=== PATIENT | female | born 1955 | race Caucasian/White ===

== ENCOUNTER → 2018-06-10 | Outpatient (REF) | payer BC | LOC: M LAB REF 17:17 | PROVIDERS: ATTEND Nurse Practitioner Family | DX: J44.9 Chronic obstructive pulmonary disease, unspecified (principal) ==

== ENCOUNTER 2018-06-28 12:35 | Outpatient (RCR) | payer BC ==
--- NOTE | 2018-06-28 14:07 | NUR ---
Pt referred by Dr. Scott Nuno for functional voice evaluation s/p flexible laryngoscopy w/ no structural defects. Pt presents w/ dysphonia characteristic of strained, hoarse vocal quality with intermittent breathiness and glottal mckinley. Pt also demonstrated decreased breath support and hard glottal onset during evaluation. Recommending voice tx to reduce laryngeal strain, maximize vocal hygiene, maximize breath support, and strengthen vocal folds. Addendum: 06/28/[address] [facility] Amended: Links added.
== END 2018-07-16 ==
LOC: M ST 12:35
PROVIDERS: ATTEND Otolaryngology
DX: R49.0 Dysphonia (principal)

== ENCOUNTER 2023-04-18 12:16 | Observation (INO) | payer MEDICARE ==
[~2023-04-18] VITALS: Ht 157.5 cm; Wt 73.3 kg
[2023-04-18] MEDS ORDERED: LABETALOL 100MG/20ML VIAL IV STA (13:06)
[2023-04-18 13:39] LABS: BASO # 0.1 10^3/uL (0.0-0.2); BASO % 0.8 % (0.0-1.0); EOS # 0.1 10^3/uL (0.0-0.5); EOS % 1.9 % (0.0-3.0); HEMATOCRIT 45.3 % (36.0-47.0); HEMOGLOBIN 15.6 g/dl (12.0-15.5); LYMPH # 2.2 10^3/uL (1.5-5.0); LYMPH % 29.5 % (24.0-44.0); MEAN CORPUSCULAR HEMOGLOBIN 28.8 pg (27.0-33.0); MEAN CORPUSCULAR HGB CONC 34.4 g/dl (32.0-36.5); MEAN CORPUSCULAR VOLUME 83.6 fl (80.0-96.0); MONO # 0.5 10^3/uL (0.0-0.8); MONO % 7.3 % (2.0-8.0); NEUTROPHILS # 4.5 10^3/uL (1.5-8.5); NEUTROPHILS % 60.2 % (36.0-66.0); PLATELET COUNT, AUTOMATED 264 10^3/uL (150-450); RED BLOOD COUNT 5.42 10^6/uL (4.00-5.40); WHITE BLOOD COUNT 7.4 10^3/uL (4.0-10.0)
[2023-04-18 13:54] LABS: ALBUMIN 3.9 G/DL (3.2-5.2); ALKALINE PHOSPHATASE 83 U/L (46-116); ALT/SGPT 24 U/L (7.0-40); AST/SGOT 16 U/L (<34); BILIRUBIN,DIRECT 0.1 MG/DL (<0.4); BILIRUBIN,TOTAL 0.4 MG/DL (0.3-1.2); BLOOD UREA NITROGEN 16 MG/DL (9-23); CALCIUM LEVEL 8.9 MG/DL (8.3-10.6); CARBON DIOXIDE LEVEL 30 MMOL/L (20-31); CHLORIDE LEVEL 108 MMOL/L (98-107); CK-MB VALUE MASS < 1.0 NG/ML (<3.6); CPK CREATINE PHOSPHOKINASE 72 U/L (34-145); CREATININE FOR GFR 0.81 MG/DL (0.55-1.30); GLOMERULAR FILTRATION RATE > 60.0 (>45); GLUCOSE, FASTING 123 MG/DL (74-106); INR 1.04; MB/CK RELATIVE INDEX 1.38 (< OR =4); POTASSIUM SERUM 3.9 MMOL/L (3.5-5.1); PROTHROMBIN TIME 13.3 SECONDS (12.5-14.5); SODIUM LEVEL 145 MMOL/L (136-145); TOTAL PROTEIN 6.8 G/DL (5.7-8.2)
[2023-04-18 13:55] LABS: PARTIAL THROMBOPLASTIN TIME 31.7 SECONDS (24.8-34.2)
[2023-04-18 13:57] LABS: THYROID STIMULATING HORMONE 3.338 uIU/ML (0.55-4.78)
[2023-04-18 13:58] LABS: FREE T4 1.01 NG/DL (0.89-1.76)
[2023-04-18 14:02] LABS: RSV AMPLIFICATION NEGATIVE (NEGATIVE)
[2023-04-18] MEDS ORDERED: MED REC IN PROGRESS XX SCH (14:20)
[2023-04-18] MEDS ORDERED: TREL1AER PO (15:02)
[2023-04-18] MEDS ORDERED: BENZ200C70 PO (15:02)
[2023-04-18] MEDS ORDERED: GUAI600T54 PO (15:02)
[2023-04-18] MEDS ORDERED: BENZ-18 PO (15:02)
[2023-04-18] MEDS ORDERED: ALBU8.5H INH (15:02)
[2023-04-18] MEDS ORDERED: LORA-1042 PO (15:02)
[2023-04-18] MEDS ORDERED: SIMV40TA20 PO (15:02)
[2023-04-18] MEDS ORDERED: OMEP-173 PO (15:02)
[2023-04-18] MEDS ORDERED: GABA-282 PO (15:02)
[2023-04-18] MEDS ORDERED: HOME MED LIST COMPLETE! XX SCH (15:05)
[2023-04-18] MEDS ORDERED: atenoloL 25 MG TAB PO ONE ×2 (16:00→18:35)
[2023-04-18 18:08] VITALS: BP 175/81; TEMP 97.4; O2SAT 92
[2023-04-18] MEDS ORDERED: cloNIDine 0.1MG TABLET PO ONE (18:35)
[2023-04-18] MEDS ORDERED: cloNIDine 0.1MG TABLET PO PRN (18:50)
[2023-04-18 20:00] VITALS: BP 147/65; TEMP 98; O2SAT 93
[2023-04-18] MEDS ORDERED: atenoloL 25 MG TAB PO SCH ×2 (21:00)
[2023-04-19] VITALS: BP 115/57; TEMP 97.5; O2SAT 93
[2023-04-19 03:28] VITALS: BP 124/56; TEMP 97.2; O2SAT 96
[2023-04-19 06:47] LABS: CHOLESTEROL RISK RATIO 3.66 (<5); HDL CHOLESTEROL 39.3 MG/DL (>40); LDL CHOLESTEROL 74.1 MG/DL (<100); NON-HDL-C 104.7 MG/DL
[2023-04-19 06:48] LABS: HEMOGLOBIN A1c 5.9 % (4.0-6.0)
[2023-04-19 06:50] LABS: THYROID STIMULATING HORMONE 2.75 uIU/ML (0.55-4.78)
[2023-04-19] MEDS ORDERED: ATEN50TA2 PO (07:35)
[2023-04-19] MEDS ORDERED: ATEN25TA PO (07:37)
[2023-04-19 07:44] VITALS: BP 137/61; TEMP 97.5; O2SAT 94
[2023-04-19] MEDS ORDERED: atenoloL 50 MG TAB PO SCH (09:00)
[2023-04-19 09:45] VITALS: BP 136/62
== END 2023-04-19 11:03 | disposition home or self-care (01) ==
LOC: EDBD 12:16 → M ED 12:16 → M ED INP 14:32 → ENRESERV 16:54 → M PCU 18:00
PROVIDERS: ADMIT General Practice; ATTEND General Practice
DX: I16.0 Hypertensive urgency (principal); G56.03 Carpal tunnel syndrome, bilateral upper limbs; J44.9 Chronic obstructive pulmonary disease, unspecified; K21.9 Gastro-esophageal reflux disease without esophagitis; Z79.51 Long term (current) use of inhaled steroids; Z79.899 Other long term (current) drug therapy; Z88.0 Allergy status to penicillin; Z87.891 Personal history of nicotine dependence; R42 Dizziness and giddiness; I10 Essential (primary) hypertension
CPT/HCPCS: 36415; 70450; 71045; 76775; 80048; 80061; 80076; 82088; 82550; 82553; 83036; 84244; 84439; 84443; 84484; 85025; 85610; 85730; 87631; 93005; 93041; 93975; 94760; 96374; 97161; 99285; G0378; J1920

== ENCOUNTER → 2023-06-22 | Outpatient (REF) | payer MEDICARE ==
[~2023-06-22] MED LIST: ALBU8.5H INH; ATEN25TA PO; ATEN50TA2 PO; BENZ-18 PO; BENZ200C70 PO; GABA-282 PO; GUAI600T54 PO; LORA-1042 PO; OMEP-173 PO; SIMV40TA20 PO; TREL1AER PO
== END ==
LOC: M SFHCRHEU 12:57
PROVIDERS: ATTEND Internal Medicine Rheumatology
DX: M25.50 Pain in unspecified joint (principal)

== ENCOUNTER → 2023-11-08 | Outpatient (REF) | payer MEDICARE ==
[2023-11-09 18:09] LABS: BACTERIA, URINE AUTO 1+ (NEGATIVE); RBC, URINE AUTO 0 /HPF (0-3); SQUAMOUS EPITHELIAL CELL UR AU 0 /HPF (0-6); WBC, URINE AUTO 0 /HPF (0-3)
== END ==
LOC: M LAB REF 17:04
PROVIDERS: ATTEND Internal Medicine Nephrology
DX: R31.21 Asymptomatic microscopic hematuria (principal)